=== PATIENT | female | born 1995 | race Caucasian/White ===

== ENCOUNTER 2017-08-06 17:23 | Emergency (ER) | payer MEDICAID ==
[2015-10-12 10:23] VITALS: BMI 32.8
[2017-08-06] MEDS ORDERED: Lactated Ringer's 1,000 ML IV ONE (17:57)
--- NOTE | 2017-08-06 18:09 | OBHP ---
Datetime: 08/06/2017 18:04 IP Adm Impression: , intrauterine Admit Comment, IP Provider: at 33=weeeks preg came with c/o cramping and tightining,no vb, lof+ fm obhx 2 x sab, 2 s ta, 1 x deliver pmh den med pnv all nkda psh de soch de ve closed a/p at 33=weeks ctxs cont kiley and efm ua ivf cont close observation Pelvic Type - PN: Adequate Extremities - PN: Normal Abdomen - PN: Normal Back - PN: Normal Breast - PN: Normal Lungs - PN: Normal Heart - PN: Normal Thyroid - PN: Normal Neurologic - PN: Normal HEENT - PN: Normal General - PN: Normal FHR - Baseline A Provider: 130 Contraction Comments Provider: irrg EGA AdmitDate IP: 33.3 Vital Signs Provider: Reviewed; Within Normal Limits IP Chief Complaint: Uterine contractions NICHD Variability Prov Fetus A: Moderate 6-25bpm NICHD Accel Fetus A IP Provider: 15X15 FHR Category Provider Fetus A: Category I Dilatation, Provider: 0 Effacement, Provider: 0 Station, Provider: -3 Genitourinary Exam: Normal DTRs - PN: Normal
[2017-08-06 18:32] LABS: SQUAMOUS EPITHIAL 6 /hpf (0-5); URINE BILIRUBIN NEGATIVE (NEGATIVE); URINE BLOOD NEGATIVE (NEGATIVE); URINE CLARITY Hazy (Clear); URINE COLOR Yellow (YELLOW); URINE GLUCOSE (UA) NORMAL (Normal); URINE PROTEIN NEGATIVE (NEGATIVE); URINE UROBILINOGEN NORMAL mg/dL (0.2-1.0)
[2017-08-06 18:39] LABS: URINE LEUKOCYTE ESTERASE TRACE Leu/uL (Negative)
--- NOTE | 2017-08-06 19:51 | OBHP ---
Datetime: 08/06/2017 19:48 Admit Comment, IP Provider: pt was sen at bed side.fels ok,no ctxs, vb, lofd+fm nst 130 mod inocencio ua neg dc home pt labor given po hy f/u pmd in2-3day FHR - Baseline A Provider: 140 Contraction Comments Provider: none Vital Signs Provider: Reviewed; Within Normal Limits NICHD Variability Prov Fetus A: Moderate 6-25bpm NICHD Accel Fetus A IP Provider: 15X15
--- NOTE | 2017-08-06 19:53 | OBDCSUM ---
Datetime: 08/06/2017 19:50 Discharged to, Provider: Home Follow up at, Provider: 2-3 Follow up in weeks, Provider: clinic Disch Activity Restrictions: No sexual activity; Nothing in vagina - [place], tampons, douche Discharge Comment, Provider: dc home pt labor given po hy f/u pmd in2-3day Discharge Diagnosis Prov Other: 33wek nst
[2017-08-07 00:16] VITALS: BP 98/52; PULSE 94; RESP 18; TEMP 98.8; O2SAT 97
== END 2017-08-06 20:05 | disposition home or self-care (01) ==
LOC: C.EROB 17:23
DX: O47.03 False labor before 37 completed weeks of gestation, third trimester (principal); Z3A.33 33 weeks gestation of pregnancy
CPT/HCPCS: 81001; 99283; J7120

== ENCOUNTER 2017-08-27 13:10 | Emergency (ER) | payer MEDICAID ==
[2017-08-27 13:35] VITALS: BMI 33.0
[2017-08-27 13:59] LABS: SQUAMOUS EPITHIAL 55 /hpf (0-5); URINE BILIRUBIN NEGATIVE (NEGATIVE); URINE BLOOD NEGATIVE (NEGATIVE); URINE CLARITY Hazy (Clear); URINE COLOR Yellow (YELLOW); URINE GLUCOSE (UA) NORMAL (Normal); URINE LEUKOCYTE ESTERASE 3+ Leu/uL (Negative); URINE PROTEIN 1+ mg/dL (NEGATIVE); URINE UROBILINOGEN NORMAL mg/dL (0.2-1.0)
--- NOTE | 2017-08-27 14:40 | OBDCSUM ---
Datetime: 08/27/2017 14:38 Discharged to, Provider: Home Follow up at, Provider: 1-2das Follow up in weeks, Provider: pmd Disch Activity Restrictions: No sexual activity; Nothing in vagina - [place], tampons, douche Discharge Comment, Provider: metrogel ptl given po hyr fd/u pmd in 1 day Discharge Diagnosis Prov Other: 36week vaginitis
--- NOTE | 2017-08-27 14:40 | OBHP ---
Datetime: 08/27/2017 14:34 IP Adm Impression: Term, intrauterine IP Chief Complaint Other: vaginal discharge IP Admit Plan: Discharge home Admit Comment, IP Provider: at 36.3weeks came witg c/o vaginal pressure and discharge from yest erday,no ctxs, vb,+fm obhx 1 x pmh den med pnv all nkda psh den soch de ve ft/50/-3 nitrazine neg a/p at 36+weeks vaginitis plan metrogel ptl given po hyr fd/u pmd in 1 day Pelvic Type - PN: Adequate Extremities - PN: Normal Abdomen - PN: Normal Back - PN: Normal Breast - PN: Normal Lungs - PN: Normal Heart - PN: Normal Thyroid - PN: Normal Neurologic - PN: Normal HEENT - PN: Normal General - PN: Normal FHR - Baseline A Provider: 130 Contraction Comments Provider: none Vital Signs Provider: Reviewed; Within Normal Limits NICHD Variability Prov Fetus A: Moderate 6-25bpm NICHD Accel Fetus A IP Provider: 15X15 FHR Category Provider Fetus A: Category I Dilatation, Provider: ft Effacement, Provider: 50 Station, Provider: -3 Genitourinary Exam: Normal DTRs - PN: Normal Datetime: 08/06/2017 18:04 EGA AdmitDate IP: 33.3
--- NOTE | 2017-08-27 15:01 | US ---
PROCEDURE: Obstetric Ultrasonography HISTORY: growth ; last which appears reported 12/14/2016 indicating estimated gestational age of 36 weeks 4 days. COMPARISON: No prior comparison available. TECHNIQUE: Transabdominal ultrasonography of was performed in multiple projections for evaluation of biophysical profile as requested. biometry was also performed as well as limited anatomical survey. Duplex Doppler analysis was also utilized. FINDINGS: A single viable intrauterine gestation is identified in cephalic lie with an anterior fundal placenta and average ultrasonic age of 35 weeks 6 days. This is marcus cord with LMP derived dates noted above. There is no evidence of placental abruption or previa. Cervix appears to measure 3.7 cm without gross dilatation of the internal cervical os. Precise definition of the os is poor due to obscuring by the vertex of the cranium. The following mean parameters were obtained: BPD 8.9 cm corresponds to 36 weeks 0 days. HC 31.7 cm corresponds is 35 weeks 4 days. AC 32.0 cm corresponds to 36 weeks 0 days. FL 7.0 cm correspond 36 weeks 0 days. cardiac activity is recorded 131 beats per minute. HC/ AC ratio measure 0.99 which is within the normal range. Estimated weight is 2811 g 421.6 g standard deviation. Amniotic fluid index measures 11.1 cm, also within normal range. anatomical survey is limited at this stage of gestation with no gross hydrocephalus evident. No hydronephrosis is identified. This anatomical survey is incomplete. Biophysical profile score is 8/8 including 2 for breathing, 2 for body movement, 2 for tone and 2 for amniotic fluid. IMPRESSION: Biophysical profile score 8/8. Single viable intrauterine gestation is identified with average ultrasonic age of 35 weeks 6 days, concordant with LMP derived dates as per above with cardiac activity 131 beats per minute. Limited anatomical survey. No placental abruption or previa. Please see discussion above.
[2017-08-27 20:00] VITALS: BP 101/63; PULSE 93
== END 2017-08-27 14:51 | disposition home or self-care (01) ==
LOC: C.EROB 13:10
DX: O23.593 Infection of other part of genital tract in pregnancy, third trimester (principal); Z3A.36 36 weeks gestation of pregnancy

== ENCOUNTER 2017-09-05 07:15 | Inpatient (IN) | payer MEDICAID ==
[2017-09-05 07:54] VITALS: BMI 34.9
[2017-09-05] MEDS ORDERED: Oxytocin 30 UNIT 30 UNITS/500 ML BAG IV PRN (07:56)
[2017-09-05] MEDS ORDERED: Lactated Ringer's 1,000 ML IV SCH (08:00)
[2017-09-05] MEDS ORDERED: Oxytocin 30 UNIT 30 UNITS/500 ML BAG IV ONE (08:17)
[2017-09-05 08:30] LABS: BASO % 0.2 % (0.0-2.0); EOS # 0.1 K/uL (0.0-0.7); EOS % 0.8 % (0.0-4.0); HEMOGLOBIN 9.8 g/dL (11.0-16.0); LYMPH # 1.4 K/uL (1.0-4.3); LYMPH % 14.9 % (20.0-40.0); MEAN CELL VOLUME 81.4 fL (81.0-99.0); MEAN CORPUSCULAR HEMOGLOBIN 27.3 pg (27.0-31.0); MEAN CORPUSCULAR HGB CONC 33.5 g/dL (33.0-37.0); MEAN PLATELET VOLUME 7.9 fL (7.2-11.7); MONO # 0.4 K/uL (0.0-0.8); MONO % 3.9 % (0.0-10.0); NEUT # 7.4 K/uL (1.8-7.0); NEUT % 80.2 % (50.0-75.0); NRBC % 0.1 % (0.0-2.0); RBC 3.6 Mil/uL (3.80-5.20); RED CELL DISTRIBUTION WIDTH 14.7 % (11.5-14.5); WHITE BLOOD COUNT 9.3 K/uL (4.8-10.8)
[2017-09-05 08:48] LABS: SQUAMOUS EPITHIAL 73 /hpf (0-5); URINE AMORPHOUS SEDIMENT RARE /ul (<OCC); URINE BACTERIA OCC (<OCC); URINE BILIRUBIN NEGATIVE (NEGATIVE); URINE BLOOD NEGATIVE (NEGATIVE); URINE CLARITY Hazy (Clear); URINE COLOR Yellow (YELLOW); URINE GLUCOSE (UA) NORMAL (Normal); URINE LEUKOCYTE ESTERASE 3+ Leu/uL (Negative); URINE PROTEIN 1+ mg/dL (NEGATIVE); URINE UROBILINOGEN NORMAL mg/dL (0.2-1.0)
[2017-09-05 08:58] LABS: ALB/GLOB RATIO 0.9 (1.0-2.1); ALBUMIN 3.4 g/dL (3.5-5.0); AST/SGOT 17 U/L (14-36); BLOOD UREA NITROGEN 4 mg/dL (7-17); GFR AFRICAN-AMERICAN > 60; GFR NON-AFRICAN AMERICAN > 60
[2017-09-05 09:01] LABS: ALT/SGPT < 6 U/L (9-52)
--- NOTE | 2017-09-05 09:16 | OBADHP ---
Datetime: 09/05/2017 09:09 Admit Comment, IP Provider: Dr Gilberto Licea pateint at 37 +weeks came with c/o ctxs strted yesteray , getting worse in am, irrg q 08/28,no vb, lof+fm. obhx 1 x omh de med pnv all nkda psh de soch den ve /-2 a/p at 37+weeks in lbor admit to l_d npo/ivf labs cont kiley and efm pitocin antipate Pelvic Type - PN: Adequate Extremities - PN: Normal Abdomen - PN: Normal Back - PN: Normal Breast - PN: Normal Lungs - PN: Normal Heart - PN: Normal Thyroid - PN: Normal Neurologic - PN: Normal HEENT - PN: Normal General - PN: Normal FHR - Baseline A Provider: 130 Contraction Comments Provider: q1-4 IP Hx Assessment: The History has been Reviewed and is Current Vital Signs Provider: Reviewed; Within Normal Limits IP Chief Complaint: Uterine contractions NICHD Variability Prov Fetus A: Moderate 6-25bpm NICHD Accel Fetus A IP Provider: 15X15 FHR Category Provider Fetus A: Category I Dilatation, Provider: 4 Effacement, Provider: 80 Station, Provider: -2 Genitourinary Exam: Normal DTRs - PN: Normal EGA AdmitDate IP: 37.5 IP Adm Impression: Term, intrauterine ; Active labor IP Admit Plan: Admit to unit; Initiate labor protocol Datetime: 08/27/2017 14:34 IP Chief Complaint Other: vaginal discharge
[2017-09-05] MEDS ORDERED: Bupivacaine HCl/FentaNYL Cit 100 ML EPI ONE (09:59)
--- NOTE | 2017-09-05 11:27 | OBPN ---
Datetime: 09/05/2017 11:24 IP Progress Impression: Normal progression of labor IP Procedures: Artificial ROM; Sterile Vag Exam Contraction Comments Provider: q1-4 IP Progress Note Comment: pt was examined at bed side.c/o pin ve 7/100/-2 arom clear cont pitocin anticipate Vital Signs Provider: Reviewed; Within Normal Limits NICHD Variability Prov Fetus A: Moderate 6-25bpm Dilatation, Provider: 7 Effacement, Provider: 100 Station, Provider: -2 Datetime: 09/05/2017 09:09 FHR - Baseline A Provider: 130 NICHD Accel Fetus A IP Provider: 15X15 FHR Category Provider Fetus A: Category I
--- NOTE | 2017-09-05 13:13 | OBPN ---
Datetime: 09/05/2017 13:09 IP Progress Impression: Normal progression of labor IP Procedures: Sterile Vag Exam FHR - Baseline A Provider: 130 IP Progress Note Comment: pt was examined at bed side ve 9/100/0 cont ptocin anticipate Vital Signs Provider: Reviewed; Within Normal Limits NICHD Accel Fetus A IP Provider: 15X15 FHR Category Provider Fetus A: Category I NICHD Variability Prov Fetus A: Moderate 6-25bpm Dilatation, Provider: 9 Effacement, Provider: 100 Station, Provider: 0
[2017-09-05] MEDS ORDERED: Oxycodone/Acetaminophen 5/325 mg Tab PO PRN ×2 (14:20)
[2017-09-05] MEDS ORDERED: Benzocaine/Menthol 20%-0.5% Topical Spray (60 ml) TOP PRN (14:20)
[2017-09-05] MEDS ORDERED: Oxytocin 30 UNIT 30 UNITS/500 ML BAG IV SCH (14:30)
--- NOTE | 2017-09-05 14:34 | OBDS ---
DELIVERY PERSONNEL Delivery Doctor: Alejandro Macias MD Coat Baster: Judit Meng RN Anesthesiologist: DR NOE MATERNAL INFORMATION Delivery Anesthesia: Epidural Estimated Blood Loss (ml): 200 Maternal Complications: None Provider Comments: Private Dr Mcaias baby deliverd in [place].end clean. no com. 9/9 cord gas sent LABOR SUMMARY EDC: 09/21/2017 00:00 No. Babies in Womb: 1 Attempted: No Labor Anesthesia: Epidural LABOR INFORMATION Reason for Induction: Not Applicable Oxytocin: Augmentation Group B Beta Strep: Negative Steroids Given: None Reason Steroids Not Administered: Not Applicable MEMBRANES Membranes Rupture Method: Artificial Rupture of Membranes: 09/05/2017 11:18 Amniotic Fluid Color: Clear Amniotic Fluid Amount: Moderate Amniotic Fluid Odor: Normal VAGINAL DELIVERY Episiotomy: None Laceration Extension: N/A Laceration Type: None Sponge Count Correct: N/A Sharps Count Correct: N/A IDENTIFICATION/MEDS BABY A ID Band Number: [id number] Sensor Applied: Yes Sensor Number: [id number].
[2017-09-05] MEDS ORDERED: Phytonadione 1 mg/0.5 ml Inj (Neonatal) ONE (15:26)
[2017-09-05] MEDS ORDERED: Erythromycin 0.5% Ophth Oint 1 APPLIC/3.5 G ONE (15:26)
[2017-09-06 00:50] VITALS: RESP 20; O2SAT 98
--- NOTE | 2017-09-06 06:05 | OBPPN ---
Datetime: 09/06/2017 06:02 PP Pain Prov: Within normal limits PP Nausea Prov: Denies PP Flatus Prov: Yes PP Abdomen/Uterus Prov: Normal PP Lochia Prov: Normal PP Extremities Prov: Normal PP Comments Phys Exam Prov: fudus below umblicus ext no edema,no calf ten PP Impression Prov: Normal progression PP Plan Prov: Continue present management PP Progress Note Prov: pt was seen at bd side, pain under cntrol,no n/v, toletraing deit, voiding, m in [place], flatus+ ppd#1 s/p cont pp care cont pain manahement encourage ambulation Vital Signs Provider PP: Reviewed; Within Normal Limits
[2017-09-06 07:25] LABS: BASO % 0.2 % (0.0-2.0); EOS # 0.1 K/uL (0.0-0.7); HEMOGLOBIN 9.1 g/dL (11.0-16.0); LYMPH # 1.8 K/uL (1.0-4.3); LYMPH % 17.4 % (20.0-40.0); MEAN CELL VOLUME 81.3 fL (81.0-99.0); MEAN CORPUSCULAR HEMOGLOBIN 27.8 pg (27.0-31.0); MEAN CORPUSCULAR HGB CONC 34.2 g/dL (33.0-37.0); MEAN PLATELET VOLUME 7.9 fL (7.2-11.7); MONO # 0.7 K/uL (0.0-0.8); MONO % 6.6 % (0.0-10.0); NEUT # 7.8 K/uL (1.8-7.0); NEUT % 74.8 % (50.0-75.0); RBC 3.27 Mil/uL (3.80-5.20); RED CELL DISTRIBUTION WIDTH 14.7 % (11.5-14.5); WHITE BLOOD COUNT 10.5 K/uL (4.8-10.8)
[2017-09-07 00:25] VITALS: PULSE 73
[2017-09-07 08:23] VITALS: BP 101/57; TEMP 97.7
== END 2017-09-07 14:45 | disposition home or self-care (01) | DRG 373 ==
LOC: C.EROB 07:15 → C.4D 07:54 → C.4M 16:16
PROVIDERS: ADMIT Obstetrics & Gynecology; ATTEND Obstetrics & Gynecology
PROC: 10E0XZZ Delivery of Products of Conception, External Approach (ICD-10-PCS; principal; 2017-09-05)
DX: O80 Encounter for full-term uncomplicated delivery (principal); Z3A.37 37 weeks gestation of pregnancy; Z37.0 Single live birth

== ENCOUNTER 2018-07-31 16:30 | Emergency (ER) | payer MEDICAID, OTHER ==
[2018-07-31 16:31] VITALS: BMI 34.9
[2018-07-31 16:53] VITALS: O2SAT 100
--- NOTE | 2018-07-31 18:07 | C.PDOC ---
History Of Present Illness 22 y/o female presents to the ED for evaluation of abdominal pain. Patient reports she recently found out she is . Yesterday she developed mild epigastric discomfort and nausea. Today patient spiked a fever, low grade here in the ED, with associated cough and congestion. No associated vomiting, diarrhea, dysuria, vaginal discharge or bleeding. Time Seen by Provider: 07/31/18 17:54 Chief Complaint (Nursing): Flu-like Symptoms History Per: Patient History/Exam Limitations: no limitations Onset/Duration Of Symptoms: Days (x 2) Associated Symptoms: Fever, Cough, Nasal Congestion Past Medical History Reviewed: Historical Data, Nursing Documentation, Vital Signs Vital Signs: Last Vital Signs Temp 100.4 F H 07/31/18 16:48 Pulse 104 H 07/31/18 16:48 Resp 18 07/31/18 16:48 BP 124/72 07/31/18 16:48 Pulse Ox 100 07/31/18 16:48 - Medical History PMH: No Chronic Diseases Surgical History: No Surg Hx - [facility] Procedures DELIVERY OF PRODUCTS OF CONCEPTION, EXTERNAL APPROACH (09/05/17) DPT ADMINISTRATION (10/04/14) MONITORING NOS (08/26/14) MANUAL ASSIST DELIV NEC (10/04/14) REPAIR OB LACERATION NEC (10/04/14) Family History: States: Unknown Family Hx - Social History Hx Tobacco Use: No Hx Alcohol Use: No Hx Substance Use: No - Immunization History Hx Tetanus Toxoid Vaccination: No Hx Influenza Vaccination: No Hx Pneumococcal Vaccination: No Review Of Systems Constitutional: Positive for: Fever. Negative for: Sweats, Malaise ENT: Positive for: Nose Congestion Cardiovascular: Negative for: Chest Pain Respiratory: Positive for: Cough. Negative for: Shortness of Breath Gastrointestinal: Positive for: Nausea, Abdominal Pain. Negative for: Vomiting, Diarrhea, Melena, Hematochezia Genitourinary: Negative for: Dysuria, Frequency, Vaginal Discharge, Vaginal Bleeding Musculoskeletal: Negative for: Back Pain Neurological: Negative for: Weakness, Numbness, Dizziness Physical Exam - Physical Exam Appears: Non-toxic, No Acute Distress Skin: Warm, Dry, No Rash Head: Atraumatic, Normacephalic Eye(s): bilateral: Normal Inspection, PERRL, EOMI Oral Mucosa: Moist Neck: Normal ROM Chest: Symmetrical Cardiovascular: Rhythm Regular, No Murmur Respiratory: Normal Breath Sounds, No Accessory Muscle Use Gastrointestinal/Abdominal: Bowel Sounds (normal), Soft, No Tenderness, No Guarding, No Rebound Back: No CVA Tenderness, No Vertebral Tenderness Extremity: Bilateral: Atraumatic, Normal Color And Temperature Neurological/Psych: Oriented x3, Normal Speech ED Course And Treatment - Laboratory Results Result Diagrams: 07/31/18 18:34 07/31/18 18:34 Lab Interpretation: Abnormal (BHCG 26939.0) O2 Sat by Pulse Oximetry: 100 (RA) Pulse Ox Interpretation: Normal - CT Scan/US Pelvic/transvag US Other Rad Studies (CT/US): Read By Radiologist, Radiology Report Reviewed CT/US Interpretation: Name:RAMÓN EVANS Exam Date:Jul 31, 2018 6:52:35 PM EDT. Modality Type:SD\US\MS\SR. Description:US - OB 1ST TRIMESTER. Gender:F Laterality:Not applicable. :93 Referring Physician:Ree Shelton MD. History. Pain. Beta HCG measures 72865. Comparison. None available. Findings. Uterus. Single live intrauterine gestation. CRL equivalent to 6 wks/0 days gestation. Gestational sac diameter equivalent to 6 wks/0 days gestation. Heart rate: 127 bpm. Small subchorionic hemorrhage measures 0.9 x 0.5 x 0.9 cm. Uterus measures 11.1 x 4.3 x 5.9 cm. No mass. Cervix. Long and closed measuring 3.3 cm. No cervical abnormality seen. Right Ovary. Corpus luteal cyst measures 2 x 2 x 1.9 cm. Cyst measures 1.5 x 0.8 x 1.5 cm. Left Ovary. Not visualized. Free Fluid. None. Other Findings. None. Impression. 1. Single live intrauterine gestation. 2. Small subchorionic hemorrhage. 3. Right corpus luteal cyst. 4. Right ovarian cyst. . Electronically signed on Jul 31, 2018 8:24:08 PM EDT by: Wilfredo Lu M.D., [place] Certified By ABR & CBCCT Progress Note: Flu swab sent. Blood work and pelvic US ordered and reviewed. Patient given 650 mg PO Tylenol. Labs reviewed, flu is negative. UA is clear. WBC are wnl. Beta-HCG 09806. Counseled patient regarding lab and US findings. Disposition Counseled Patient/Family Regarding: Studies Performed, Diagnosis, Need For Followup - Disposition Referrals: [facility] [Outside] Disposition: HOME/ ROUTINE Disposition Time: 20:45 Condition: STABLE Instructions: - The Second Month, Avoiding Infections in Forms: [facility] (Croatian) - Clinical Impression Clinical Impression: Early stage of , Influenza-like illness - Scribe Statement The provider has reviewed the documentation as recorded by the Shirley Still Provider Attestation: All medical record entries made by the Shirley were at my direction and personally dictated by me. I have reviewed the chart and agree that the record accurately reflects my personal performance of the history, physical exam, medical decision making, and the department course for this patient. I have also personally directed, reviewed, and agree with the discharge instructions and disposition.
[2018-07-31 18:39] LABS: BASO % 0.1 % (0.0-2.0); EOS # 0.1 K/uL (0.0-0.7); EOS % 1.3 % (0.0-4.0); HEMOGLOBIN 12.5 g/dL (11.0-16.0); LYMPH # 0.6 K/uL (1.0-4.3); LYMPH % 8.1 % (20.0-40.0); MEAN CELL VOLUME 85.7 fL (81.0-99.0); MEAN CORPUSCULAR HEMOGLOBIN 27.7 pg (27.0-31.0); MEAN CORPUSCULAR HGB CONC 32.4 g/dL (33.0-37.0); MEAN PLATELET VOLUME 9.1 fL (7.2-11.7); MONO # 0.6 K/uL (0.0-0.8); NEUT # 6.6 K/uL (1.8-7.0); NEUT % 82.5 % (50.0-75.0); PLATELET COUNT 256 K/uL (130-400); RBC 4.51 Mil/uL (3.80-5.20); RED CELL DISTRIBUTION WIDTH 14.6 % (11.5-14.5)
[2018-07-31 18:55] LABS: ALB/GLOB RATIO 1.4 (1.0-2.1); ALBUMIN 4.3 g/dL (3.5-5.0); ALT/SGPT 21 U/L (9-52); AST/SGOT 15 U/L (14-36); BLOOD UREA NITROGEN 7 mg/dL (7-17); CALCIUM 9.4 mg/dl (8.6-10.4); GFR NON-AFRICAN AMERICAN > 60
[2018-07-31 19:24] LABS: SQUAMOUS EPITHIAL 1 /hpf (0-5); URINE BILIRUBIN NEGATIVE (NEGATIVE); URINE BLOOD NEGATIVE (NEGATIVE); URINE CLARITY Clear (Clear); URINE COLOR Yellow (YELLOW); URINE GLUCOSE (UA) NORMAL (Normal); URINE LEUKOCYTE ESTERASE NEG Leu/uL (Negative); URINE PROTEIN NEGATIVE (NEGATIVE); URINE UROBILINOGEN NORMAL mg/dL (0.2-1.0)
[2018-07-31 20:03] LABS: BANDS 2 % (0-2); EOSINOPHIL 1 % (0-4); LYMPHOCYTE 7 % (20-40); MONOCYTE 5 % (0-10); NEUTROPHIL 85 % (50-75); PLATELET ESTIMATE NORMAL (NORMAL); TOTAL CELLS COUNTED 100
[2018-07-31 20:57] VITALS: BP 113/72; PULSE 97; RESP 20; TEMP 100
--- NOTE | 2018-08-01 11:08 | US ---
Date of service: 07/31/2018 Indication: Pain Comparison: Limited Ob/biophysical profile performed 08/27/17 Technique: OB limited/biophysical profile Findings: Uterus measures approximately 11.1 x 4.3 x 5.7 cm. Anteverted. Cervix length measures approximately 3.3 cm. There is a single intrauterine fetus present. The gestational sac measures 1.7 cm and is compatible with a gestational age of 6 weeks 0 days. The crown-rump length measures 0.3 cm and is compatible with a gestational age of 6 weeks 0 days. Small subchorionic hemorrhage measures approximately 0.9 x 0.5 x 0.7 cm. There is heart motion which measured 127 BPM. The right ovary measures 3.4 x 2.5 x 2.8 cm with probable corpus luteum measuring approximately 2.0 x 2.0 x 1.9 cm. The left ovary is not visualized. Blood flow is demonstrated to the right ovary. Impression: Live single intrauterine with estimated gestational age 6 weeks 0 days. heart rate 127 bpm. Small subchorionic hemorrhage measures approximately 0.9 x 0.5 x 0.7 cm. Advise an anomaly screen at 16-18 weeks gestational age The left ovary is not visualized. 2.0 x 2.0 x 1.9 cm probable right corpus luteum. Preliminary impression was provided by [employer]
== END 2018-07-31 20:57 | disposition home or self-care (01) ==
LOC: C.ER 16:30
DX: O99.511 Diseases of the respiratory system complicating pregnancy, first trimester (principal); J11.1 Influenza due to unidentified influenza virus with other respiratory manifestations; Z3A.01 Less than 8 weeks gestation of pregnancy

== ENCOUNTER 2018-09-07 18:30 | Emergency (ER) | payer MEDICAID ==
[2018-09-07 18:31] VITALS: BMI 34.9
[2018-09-07 18:40] VITALS: RESP 16; TEMP 97.6; O2SAT 98
[2018-09-07] MEDS ORDERED: Fluorescein 1 mg Ophthalmic Strip OU STA (19:09)
[2018-09-07] MEDS ORDERED: Fluorescein 1 mg Ophthalmic Strip ONE (19:16)
[2018-09-07] MEDS ORDERED: Tetracaine 0.5% Ophth (OR ONLY) ONE (19:16)
--- NOTE | 2018-09-07 19:32 | C.PDOC ---
History Of Present Illness 22 year old female presents to the ED complaining of left eye redness and swelling. Reports she has seasonal allergies but has not taken any OTC antihistamine medications. States she noticed the left eye was slightly red, itchy and tearing when she woke up this morning. Admits she began rubbing eye often and later noticed swelling on the lateral aspect of left eye. Denies any trauma, discharge, crusting, visual disturbances, photophobia, or recent illness. Chief Complaint (Nursing): Eye Problem History Per: Patient History/Exam Limitations: no limitations Onset/Duration Of Symptoms: Days Current Symptoms Are (Timing): Still Present Associated Symptoms: Pain, Swelling, Itching Past Medical History Reviewed: Historical Data, Nursing Documentation, Vital Signs Vital Signs: Last Vital Signs Temp 97.6 F 09/07/18 18:38 Pulse 83 09/07/18 18:38 Resp 16 09/07/18 18:38 BP 122/80 09/07/18 18:38 Pulse Ox 98 09/07/18 18:38 - Medical History PMH: No Chronic Diseases Denies: Depression, Diabetes, HTN Surgical History: No Surg Hx - [facility] Procedures DELIVERY OF PRODUCTS OF CONCEPTION, EXTERNAL APPROACH (09/05/17) DPT ADMINISTRATION (10/04/14) MONITORING NOS (08/26/14) MANUAL ASSIST DELIV NEC (10/04/14) REPAIR OB LACERATION NEC (10/04/14) Family History: States: No Known Family Hx - Social History Hx Tobacco Use: No Hx Alcohol Use: No Hx Substance Use: No - Immunization History Hx Tetanus Toxoid Vaccination: No Hx Influenza Vaccination: No Hx Pneumococcal Vaccination: No Review Of Systems Eyes: Positive for: Redness, Other (left eye swelling, no discharge, no photophobia). Negative for: Vision Change Physical Exam - Physical Exam Appears: Non-toxic, No Acute Distress Skin: Warm, Dry, No Rash Head: Atraumatic, Normacephalic Eye(s): bilateral: PERRL, EOMI, right: Normal Inspection, left: Other (slightly injected, what appears to be mild chemosis from 1 o'clock to 4 o'clock position, tearing, no Fluorescein uptake on exam ) Ear(s): Bilateral: Normal Nose: No Discharge, Other (turbinates enlarged) Oral Mucosa: Moist Tongue: Normal Appearing Lips: Normal Appearing Gingiva: Normal Appearing Throat: No Erythema, No Exudate Neck: Normal ROM, Supple Chest: Symmetrical Cardiovascular: Rhythm Regular Respiratory: Normal Breath Sounds, No Rales, No Rhonchi, No Wheezing Neurological/Psych: Oriented x3, Normal Speech, Normal Motor, Normal Sensation Gait: Steady ED Course And Treatment O2 Sat by Pulse Oximetry: 98 (RA) Pulse Ox Interpretation: Normal Medical Decision Making Medical Decision Making: Vision test without correction: Right eye 20/50, Left eye 20/70, both eyes 20/40. Patient admits to wearing glasses but did not wear any today. In light of chemosis likely due to allergies, will treat with Benadryl 50mg, Pepcid 20mg, and Pred 20mg now No uptake on Fluorescein will be discharged on Zrytec and Patanol Advised to follow up with ophtho on Sunday Patient verbalized understanding and is stable for discharge Patient is stable for discharge Disposition Counseled Patient/Family Regarding: Diagnosis, Need For Followup, Rx Given - Disposition Referrals: Raghav Carney [Staff Provider] - Disposition: HOME/ ROUTINE Disposition Time: 20:20 Condition: IMPROVED Additional Instructions: Start Zrytec daily for allergies Take Patanol twice a day as needed for itchy eyes cool compresses to the eyes follow up with ophtho 1-2 days if symptoms persist return to the ED if symptoms worsen Prescriptions: Cetirizine HCl [Zyrtec] 10 mg PO DAILY PRN #30 tab.rapdis PRN Reason: Allergy Symptoms Olopatadine HCl [Patanol] 5 ml OU BID PRN #1 bottle PRN Reason: itching Instructions: Seasonal Allergies in Adults, Conjunctivitis (Noninfectious Pinkeye) (DC) Forms: [employer] (Sinhala) - Clinical Impression Clinical Impression: Redness of eye, left, Chemosis of left conjunctiva, Allergic conjunctivitis - PA / [employer] / Resident Statement MD/DO has reviewed & agrees with the documentation as recorded. - Scribe Statement The provider has reviewed the documentation as recorded by the Scribsteffany Headley All medical record entries made by the Scribe were at my direction and personally dictated by me. I have reviewed the chart and agree that the record accurately reflects my personal performance of the history, physical exam, medical decision making, and the department course for this patient. I have also personally directed, reviewed, and agree with the discharge instructions and disposition.
[2018-09-07 20:24] VITALS: BP 124/84; PULSE 70
== END 2018-09-07 20:23 | disposition home or self-care (01) ==
LOC: C.ER 18:30
DX: H11.422 Conjunctival edema, left eye (principal); H10.12 Acute atopic conjunctivitis, left eye; H57.89 Other specified disorders of eye and adnexa